=== PATIENT | female | born 2000 | race Caucasian/White ===

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

== ENCOUNTER 2020-01-15 05:10 | Emergency (ER) | payer OTHER, MEDICAID ==
[~2020-01-15] VITALS: Ht 162.6 cm; Wt 81.7 kg
[~2020-01-15 05:10] MED LIST changes: +PRENA1 TRUE CO1 EACH PO; +ZANTAC 150MG T150 MG PO
[2020-01-15] MEDS ORDERED: SULFACETAMIDE 115 M1 OPHTHALMIC (05:47)
[2020-01-15 06:00] VITALS: BP 122/56
== END 2020-01-15 06:00 | disposition home or self-care (01) ==
LOC: M.ERS 05:10
DX: T15.81XA Foreign body in other and multiple parts of external eye, right eye, initial encounter (principal); K21.9 Gastro-esophageal reflux disease without esophagitis

== ENCOUNTER 2020-03-14 10:55 | Emergency (ER) | payer OTHER, MEDICAID ==
[~2020-03-14] VITALS: Ht 154.9 cm; Wt 83.9 kg
[~2020-03-14 10:55] MED LIST changes: +SULFACETAMIDE 115 M1 OPHTHALMIC
[2020-03-14 11:35] LABS: URINE BILIRUBIN NEGATIVE (Negative); URINE BLOOD NEGATIVE (Negative); URINE CLARITY CLEAR; URINE COLOR YELLOW; URINE GLUCOSE-RANDOM NEGATIVE (Negative); URINE KETONES NEGATIVE (Negative); URINE LEUKOCYTES-REFLEX NEGATIVE (Negative); URINE NITRITE-REFLEX NEGATIVE (Negative); URINE PROTEIN NEGATIVE (Negative); URINE UROBILINOGEN 0.2 E.U./dl (0.2-1.0)
[2020-03-14] MEDS ORDERED: BACTRIM DS TAB1 EAC1 PO (13:08)
[2020-03-14 13:19] VITALS: BP 110/50
== END 2020-03-14 13:21 | disposition home or self-care (01) ==
LOC: M.ERS 10:55
PROVIDERS: Emergency Medicine Emergency Medical Services
DX: N39.0 Urinary tract infection, site not specified (principal); M54.5 Low back pain; K21.9 Gastro-esophageal reflux disease without esophagitis